=== PATIENT | female | born 1990 | race Caucasian/White ===

== ENCOUNTER 2017-12-21 15:33 | Emergency (ER) | payer BC, OTHER ==
[~2017-12-21 15:33] MED LIST: DEPO400I IM; PROM25SU8 PO
--- NOTE | 2017-12-21 16:59 | PD ---
HPI Chief Complaint increased bp Date Seen: Dec 21, 2017 Time Seen: 16:50 Travel History International Travel<30 Days: No Contact w/Intl Traveler<30Days: No Known Affected Area: No History of Present Illness HPI pt. is a at 40 weeks gestation present from dr. rat[place] office 2/2 increased bp. pt. states bp been running 110's systolic whole preg and today bp 130's over 80's. pt. denies cp/sob, n/v, lopez/visual disturbances. +FM, no lof/vb. Weeks Gestation: 40 Para: 0 : 1 History Past Medical History Medical History: Denies Significant Hx Obstetric History Obstetric History Past Surgical History Surgical History: No Previous Surgery Family History Family History: Negative Social History Alcohol Use: No Tobacco Use: No Substance Abuse: No Allergies-Medications (Allergen,Severity, Reaction): Coded Allergies: No Known Allergies (Unverified , 01/15/12) Home Meds Active Scripts Promethazine Hcl (Promethazine Hcl) 25 Mg Tab, 25 MG PO Q6HPRN, #30 FOR NAUSEA/VOMITING Prov:Edison Jimenez MD 01/15/12 Reported Medications Medroxyprogesterone Acetate (Depo-Provera) 400 Mg/Ml Inj, 400 MG IM every 3 months 01/15/12 Review of Systems Except as stated in HPI: all other systems reviewed are Neg Physical Exam Narrative GENERAL: Well-nourished, well-developed patient. SKIN: Warm and dry. HEAD: Normocephalic and atraumatic. EYES: No scleral icterus. No injection or drainage. ENT: No nasal drainage noted. Mucous membranes pink. Airway patent. NECK: Supple, trachea midline. No JVD. CARDIOVASCULAR: Regular rate and rhythm without murmurs, gallops, or rubs. RESPIRATORY: Breath sounds equal bilaterally. No accessory muscle use. BREASTS: Bilateral exam showed no masses , no retractions, no nipple discharge. ABDOMEN/GI: Abdomen soft, non-tender, bowel sounds present, no rebound, no guarding Gravid FHT's: Category: 1 Baseline: 120's Reactive: + Variability: mod Decels: none EXTREMITIES: No cyanosis or edema. BACK: Nontender without obvious deformity. No CVA tenderness. NEUROLOGICAL: Awake and alert. Motor and sensory grossly within normal limits. Five out of 5 muscle strength in all muscle groups. Normal speech. Data Data Vital Signs Reviewed: Yes [facility] Medical Record Reviewed: Yes Plan at 40 weeks w/o htn. htn d/w pt. precautions for return given to pt. all ? answered. f/u as sched. Disposition: 01 DISCHARGE HOME Condition: Stable Patient Instructions: General Instructions, at 39 to 40 Weeks (ED) Additional Instructions: Make appointment with your doctor for tuesday for a blood pressure check. drink 8 -10 glasses of water a day. Departure Forms: Tests/Procedures Jason An Jr., MD Dec 21, 2017 16:59
--- NOTE | 2017-12-21 17:26 | PD ---
HPI Travel History International Travel<30 Days: No Contact w/Intl Traveler<30Days: No Known Affected Area: No History of Present Illness HPI pt. is a at 40 weeks gestation present from dr. [place] office 2/2 increased bp. pt. states bp been running 110's systolic whole preg and today bp 130's over 80's. pt. denies cp/sob, n/v, lopez/visual disturbances. +FM, no lof/vb. Allergies-Medications (Allergen,Severity, Reaction): Coded Allergies: No Known Allergies (Unverified , 01/15/12) Home Meds Active Scripts Promethazine Hcl (Promethazine Hcl) 25 Mg Tab, 25 MG PO Q6HPRN, #30 FOR NAUSEA/VOMITING Prov:Edison Jimenez MD 01/15/12 Reported Medications Medroxyprogesterone Acetate (Depo-Provera) 400 Mg/Ml Inj, 400 MG IM every 3 months 01/15/12 Physical Exam Narrative GENERAL: Well-nourished, well-developed patient. SKIN: Warm and dry. HEAD: Normocephalic and atraumatic. EYES: No scleral icterus. No injection or drainage. ENT: No nasal drainage noted. Mucous membranes pink. Airway patent. NECK: Supple, trachea midline. No JVD. CARDIOVASCULAR: Regular rate and rhythm without murmurs, gallops, or rubs. RESPIRATORY: Breath sounds equal bilaterally. No accessory muscle use. BREASTS: Bilateral exam showed no masses , no retractions, no nipple discharge. ABDOMEN/GI: Abdomen soft, non-tender, bowel sounds present, no rebound, no guarding Gravid to [-] weeks size Fundal Height: [-] GENITOURINARY: External Genitalia: intact and normal in appearance BUS glands: [-] Cervix: [-] Dilatation: [-] Effacement: [-] Station: [-] Presentation: [-] Membranes: [intact or ruptured] Uterine Contractions: [-] FHT's: Category: [-] Baseline: [-] Reactive: [-] Variability: [-] Decels: [-] EXTREMITIES: No cyanosis or edema. BACK: Nontender without obvious deformity. No CVA tenderness. NEUROLOGICAL: Awake and alert. Motor and sensory grossly within normal limits. Five out of 5 muscle strength in all muscle groups. Normal speech. MDM Diagnosis Diagnosis: Primary Impression: Blood pressure elevated without history of HTN Additional Impression: 40 weeks gestation of Disposition: 01 DISCHARGE HOME Condition: Stable Patient Instructions: General Instructions, at 39 to 40 Weeks (ED) Additional Instructions: Make appointment with your doctor for tuesday for a blood pressure check. drink 8 -10 glasses of water a day. Departure Forms: Tests/Procedures Jason An Jr., MD Dec 21, 2017 17:26
== END 2017-12-21 16:54 | disposition home or self-care (01) ==
LOC: HOBED 15:33
DX: O26.893 Other specified pregnancy related conditions, third trimester (principal); R03.0 Elevated blood-pressure reading, without diagnosis of hypertension; Z3A.40 40 weeks gestation of pregnancy
CPT/HCPCS: 99283

== ENCOUNTER 2017-12-27 17:47 | Inpatient (IN) | payer BC ==
[~2017-12-27] VITALS: Ht 162.6 cm; Wt 89.0 kg
[2017-12-27 19:43] LABS: BACTERIA, URINE OCC /hpf; BILIRUBIN, URINE NEG (NEG); BLOOD, URINE NEG (NEG); GLUCOSE,URINE NEG (NEG); KETONE, URINE NEG (NEG); MUCUS URINE FEW /lpf (OCC); NITRITE,URINE NEG (NEG); PH, URINE 6.5 (5.0-8.5); SQUAMOUS EPITHELIAL CELL URINE 5 /hpf (0-5); URINE COLOR YELLOW (YELLW/STRAW); URINE LEUKOCYTE ESTERASE NEG (NEG)
[2017-12-27 19:53] LABS: AUTOMATED NEUTROPHIL # 7.7 TH/MM3 (1.8-7.7); BASOPHIL % 0.2 % (0.0-2.0); EOSINOPHIL # 0.1 TH/MM3 (0-0.4); EOSINOPHIL % 1.2 % (0.0-4.0); HEMATOCRIT 35.2 % (35.0-46.0); HEMOGLOBIN 11.9 GM/DL (11.6-15.3); LYMPH % 23.7 % (9.0-44.0); LYMPHOCYTE # 2.7 TH/MM3 (1.0-4.8); MEAN CELL VOLUME 89.3 FL (80.0-100.0); MEAN CORPUSCULAR HEMOGLOBIN 30.2 PG (27.0-34.0); MEAN CORPUSCULAR HGB CONC 33.8 % (32.0-36.0); MEAN PLATELET VOLUME 8.3 FL (7.0-11.0); MONO % 7.5 % (0.0-8.0); MONOCYTE # 0.9 TH/MM3 (0-0.9); NEUT % 67.4 % (16.0-70.0); PLATELET COUNT 236 TH/MM3 (150-450); RED BLOOD COUNT 3.94 MIL/MM3 (4.00-5.30); RED CELL DISTRIBUTION WIDTH 12.7 % (11.6-17.2); WHITE BLOOD COUNT 11.4 TH/MM3 (4.0-11.0)
[2017-12-27] MEDS ORDERED: OXYTOCIN 30 UNITS 500ML PREMIX IV ONE (20:15)
[2017-12-27] MEDS ORDERED: CITRIC ACID-SODIUM CITRATE LIQ 30 ML UDC PO SCH (20:15)
[2017-12-27] MEDS ORDERED: LIDOCAINE HCL 1% 50 ML VIAL INFIL PRN (20:15)
[2017-12-27] MEDS ORDERED: SODIUM CHLORIDE 0.9% FLUSH 10 ML FLUSH IV FLUSH SCH (20:15)
[2017-12-27] MEDS ORDERED: ZOLPIDEM TARTRATE 5 MG TAB PO PRN (20:15)
[2017-12-27] MEDS ORDERED: MINERAL OIL 10 ML VIAL TOPICAL PRN (20:15)
[2017-12-27] MEDS ORDERED: ONDANSETRON HCL 4 MG/2 ML VIAL IV PUSH PRN (20:15)
[2017-12-27] MEDS ORDERED: NS 1000 ML IV PRN (20:15)
[2017-12-27] MEDS ORDERED: SODIUM CHLORIDE 0.9% FLUSH 10 ML FLUSH IV FLUSH PRN (20:15)
[2017-12-27] MEDS ORDERED: LIDOCAINE HCL 1% 50 ML VIAL I-DERMAL PRN (20:15)
[2017-12-27] MEDS ORDERED: NS 500 ML BOLUS IV PRN (20:15)
[2017-12-27] MEDS ORDERED: LACTATED RINGER'S 1000 ML BOLUS IV PRN (20:15)
[2017-12-27] MEDS ORDERED: MISOPROSTOL 100 MCG TAB - VAGINALLY VAGINAL ONE (20:30)
[2017-12-27] MEDS ORDERED: MISOPROSTOL 25 MCG TAB VAGINAL ONE (20:30)
[2017-12-27 20:43] VITALS: BP 131/80; PULSE 87
[2017-12-27] MEDS: SODIUM CHLORIDE 0.9% FLUSH 10 ML FLUSH IV FLUSH SCH (21:00)
[2017-12-28] VITALS (18 sets, daily range): BP systolic 111–141; BP diastolic 61–91; PULSE 73–92; RESP 15–18; TEMP 97.5–98.3
[2017-12-28] MEDS: MISOPROSTOL 100 MCG TAB VAGINAL SCH ×2 (04:00)
[2017-12-28] MEDS ORDERED: ACETAMINOPHEN 325 MG TAB PO ONE (06:45)
--- NOTE | 2017-12-28 08:28 | MH ---
cc: Angel Haynes MD DATE OF ADMISSION: 12/27/2017 REASON FOR ADMISSION: Intrauterine at 41 weeks. Ms. Serna is a 27-year-old white female, para 0-0-0-0, whose last menstrual period and ultrasound put her at 41 weeks on the date of this dictation. She was put in the hospital last night and given some Cytotec because her cervix was long, thick, very high. We gave her 3 doses of Cytotec, and she is being evaluated for Pitocin. The baby is somewhat large, and I will go ahead an get an ultrasound this morning to confirm that the baby is not over 4500 g. Her RGS was abnormal at 175, and she never had time to get her 3-hour test because of work. PAST OBSTETRIC HISTORY: Para 0-0-0-0. PAST GYNECOLOGIC HISTORY: Her Pap smear is negative. CT, GC and tric are all negative at the beginning of the . PAST SURGICAL HISTORY: She had a laparoscopic surgery for endometriosis in 2014. 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 Her partner could not get tested due to financial reasons. Anemia. Abnormal glucose tolerance test. Heartburn in . SOCIAL HISTORY: She is single. She does not smoke. She quit in 03/2017. She is a nondrinker. She works at [employer]. FAMILY HISTORY: Remarkable for high blood pressure. ALLERGIES: NO KNOWN DRUG ALLERGIES. CURRENT MEDICATIONS: Iron 1 p.o. daily, vitamins 1 p.o. daily. REVIEW OF SYSTEMS: No headaches. No scotoma. No shortness of breath. No chest pain or pressure. Normal bowel function. The baby is moving well. She denies rupture of membranes, bleeding or regular uterine contractions. PHYSICAL EXAMINATION: Well-developed, well-nourished female in no acute distress. HEENT: Normocephalic, atraumatic. NECK: Supple. Trachea is in the midline. No thyromegaly, adenopathy. CHEST: Clear to auscultation. HEART: Regular rate and rhythm. ABDOMEN: . Fundal height is 39 cm. PELVIC: The external genitalia is normal. Vagina is clean. The cervix is closed, long, very posterior. The baby is very high. ASSESSMENT: 1. Intrauterine at 41 weeks, for induction with Cytotec if the baby is not over 4000 g. I would treat her like a diabetic since she could never get her 3-hour glucose tolerance test. If the baby is over 4000 g, I will strongly recommend a section. 2. Cystic fibrosis carrier. Will notify pediatrics. Partner could not get tested. 3. Group B streptococcus positive. Will go ahead and start her on penicillin when she gets into labor or if we do a section, we will premedicate her with cephalosporin. 4. Anemia. I will check her blood count when she gets admitted. 5. She declined an influenza vaccine on multiple occasions. R. Brandon Haynes MD RJV/LK , 08:02 AM , 08:26 AM
--- NOTE | 2017-12-28 09:33 | HHI.PR ---
Objective Vital Signs Date Time Temp Pulse Resp B/P (MAP) Pulse Ox O2 Delivery O2 Flow Rate FiO2 12/28/17 07:29 83 131/70 (90) 12/28/17 07:27 97.7 12/28/17 04:17 77 130/79 (96) 12/28/17 00:15 18 12/28/17 00:15 97.7 12/27/17 20:43 87 131/80 (97) Result Diagram: 12/27/17 1815 Assessment and Plan Assessment and Plan Long discussion this morning with the patient and her family regarding the weight of this baby. The ultrasound reveals a baby 3700+ g and I am concerned that this baby looks a little large I did offer her but she rather wait she is 5 feet 3 inches and has adequate pelvis. We discussed shoulder dystocia and the risks and benefits and alternatives of a section in some detail. We will give her some Pitocin this morning and if there is any problems with arrest of labor or arrested descent will go to section with a very low threshold for problems. She seems to understand and we will proceed with this plan. Angel Haynes MD Dec 28, 2017 09:33
[2017-12-28] MEDS: OXYTOCIN 30 UNITS-500ML PREMIX 500 ML IV PRN (10:06)
[2017-12-28] MEDS: LACTATED RINGER'S 1000 ML IV SCH ×2 (10:07→12:00)
[2017-12-28] MEDS: SODIUM CHLORIDE 0.9% FLUSH 10 ML FLUSH IV FLUSH SCH ×2 (10:08→21:00)
[2017-12-28 16:14] LABS: HEMOGLOBIN A1C 5.7 % (4.3-6.0)
[2017-12-28] MEDS ORDERED: [UNRECOGNIZED DRUG - OTHER] VAGINAL ONE ×2 (17:00→19:00)
[2017-12-29] VITALS (32 sets, daily range): BP systolic 121–139; BP diastolic 52–90; PULSE 76–102; RESP 17–18; TEMP 97.2–97.9; O2SAT 97–100
[2017-12-29] MEDS: OXYTOCIN 30 UNITS-500ML PREMIX 500 ML IV PRN (05:40)
[2017-12-29] MEDS ORDERED: ceFAZolin 2 GM PREMIX 50 ML IV SCH (10:45)
[2017-12-29] MEDS ORDERED: LACTATED RINGER'S 1000 ML IV SCH (10:45)
[2017-12-29] MEDS ORDERED: CITRIC ACID-SODIUM CITRATE LIQ 30 ML UDC PO SCH (10:45)
[2017-12-29] MEDS ORDERED: LACTATED RINGER'S 1000 ML IV ONE (10:45)
[2017-12-29] MEDS ORDERED: ONDANSETRON HCL 4 MG/2 ML VIAL IV ONE (12:00)
[2017-12-29] MEDS ORDERED: ePHEDrine/NS 25 MG/5 ML SYRINGE IV ONE (12:00)
[2017-12-29] MEDS ORDERED: OXYTOCIN 10 UNIT/ML AMP IV ONE (12:00)
[2017-12-29] MEDS ORDERED: LACTATED RINGER'S 1000 ML INJ 2,000 ML IV ONE (12:00)
[2017-12-29] MEDS ORDERED: DEXAMETHASONE SOD PHOS 4 MG/ML VIAL IV ONE (12:00)
[2017-12-29] MEDS ORDERED: MORPHINE SULFATE PF 5 MG/10 ML VIAL ONE (12:05)
[2017-12-29] MEDS ORDERED: ACETAMINOPHEN 1000 MG/100 ML 100 ML IV ONE ×2 (12:06→13:15)
[2017-12-29] MEDS ORDERED: SODIUM CHLORIDE 0.9% FLUSH 10 ML FLUSH IV FLUSH PRN (13:15)
[2017-12-29] MEDS ORDERED: ZOLPIDEM TARTRATE 5 MG TAB PO PRN (13:15)
[2017-12-29] MEDS ORDERED: ONDANSETRON HCL 4 MG/2 ML VIAL IV PUSH PRN (13:15)
[2017-12-29] MEDS ORDERED: OXYTOCIN 30 UNITS-500ML PREMIX 500 ML IV ONE ×2 (13:15)
[2017-12-29] MEDS ORDERED: oxyCODONE/ACETAMINOPHEN 5 MG/325 MG TAB PO PRN (13:15)
[2017-12-29] MEDS ORDERED: fentaNYL CITRATE 250 MCG/5 ML AMP ONE (13:20)
--- NOTE | 2017-12-29 13:26 | MP ---
cc: Angel Haynes MD DATE OF OPERATION: 12/29/2017 PREOPERATIVE DIAGNOSES: 1. Intrauterine at 41+ weeks. 2. Failed induction. 3. Possible macrosomia. POSTOPERATIVE DIAGNOSES: 1. Intrauterine at 41+ weeks. 2. Failed induction. 3. No macrosomia. PROCEDURE: Primary low transverse section. ANESTHESIA: Spinal. SURGEON: Angel Haynes MD RECTIFYING OPERATOR: Ioana Grijalva MD FINDINGS: Normal uterus, normal fallopian tubes, normal ovaries. Apgars 8 and 9. Weight 7 pounds 2 ounces. COMPLICATIONS: None. COUNTS: Correct. ESTIMATED BLOOD LOSS: 500 mL. FLUIDS: Crystalloids. Patient tolerated the procedure well, went to the recovery room in good condition. INDICATION FOR PROCEDURE: This is a lady who came in for induction of labor at 41 weeks. Her cervix was not inducible and I offered her a at that time. Because she had an abnormal RGS and no 3-hour GTT, I got an ultrasound to ensure that this baby was not very large. The baby was between 3700 and 3800 gm on ultrasound. I felt this baby was around 9 pounds. After 2 days of induction, her cervix really was not changing, she did not want to go through the Pitocin any more and we elected to proceed with the section. PROCEDURE: Under an adequate level of anesthesia, she was prepped and draped for abdominal surgery. A Pfannenstiel incision was made and carried down to the fascia. The fascia was taken off the rectus muscle by blunt and sharp dissection. The rectus muscles were spread bluntly and the peritoneum was entered under direct vision without difficulty. The incision was extended with care to avoid the urinary bladder. A bladder blade was placed and a bladder flap created in the usual fashion. The uterine incision was made in a transverse manner along the lower uterine segment which was not well-developed. It was taken down in the midline until the intrauterine cavity was entered. A large amount of clear fluid was noted. The vertex was grasped with a suction cup and delivered. The hypopharynx and nasopharynx were suctioned and the remainder of the infant delivered without difficulty. The cord was doubly clamped and cut and the infant handed to the resuscitation team present. The placenta was then delivered manually. The uterus was curettaged twice with a wet lap and irrigated with a large amount of fluid. The uterine incision was then repaired with 2-0 Vicryl in a running locking fashion, with the second layer imbricating the first. Hemostasis was excellent. The cul-de-sac and gutters were cleaned of blood and debris. The uterus was delivered back into the abdomen. The rectus muscles were reapproximated with 0 Vicryl in interrupted fashion. The fascia was repaired from lateral to midline with 0 Vicryl and the subcu was repaired with 3-0 Vicryl. The skin was repaired with a 4-0 Vicryl in a subcuticular manner. The wound was sterilely dressed. She tolerated the procedure well and went to the recovery room in satisfactory condition. R. Brandon Haynes MD RJV/TI , 01:10 PM , 01:25 PM
[2017-12-29] MEDS ORDERED: EPIDURAL-DO NOT ADMINISTER ANTICOAGULANTS PRN (15:15)
[2017-12-29] MEDS ORDERED: EPIDURAL-DIPHENHYDRAMINE HCL 50 MG/ML VIAL IV PUSH PRN (15:15)
[2017-12-29] MEDS ORDERED: EPIDURAL-NALOXONE HCL 0.4 MG/ML AMP IV PUSH PRN (15:15)
[2017-12-29] MEDS ORDERED: EPIDURAL-NO SYSTEMIC NARCOTICS PRN (15:15)
[2017-12-29] MEDS ORDERED: EPIDURAL-DIPHENHYDRAMINE HCL 50 MG CAP PO PRN (15:15)
[2017-12-29] MEDS: LACTATED RINGER'S 1000 ML INJ 1,000 ML IV SCH (20:25)
[2017-12-29] MEDS: SODIUM CHLORIDE 0.9% FLUSH 10 ML FLUSH IV FLUSH SCH (20:25)
[2017-12-29] MEDS ORDERED: OXYTOCIN 30 UNITS-500ML PREMIX 500 ML IV PRN (23:15)
[2017-12-29] MEDS: DOCUSATE SODIUM 50 MG/SENNA 8.6 MG TAB PO PRN (23:27)
[2017-12-29] MEDS: IBUPROFEN 600 MG TAB PO PRN (23:28)
[2017-12-29] MEDS: oxyCODONE/ACETAMINOPHEN 5 MG/325 MG TAB PO PRN (23:28)
[2017-12-30] MEDS: LACTATED RINGER'S 1000 ML INJ 1,000 ML IV SCH (04:05)
[2017-12-30] MEDS: IBUPROFEN 600 MG TAB PO PRN ×3 (06:06→20:04)
[2017-12-30 06:18] LABS: AUTOMATED NEUTROPHIL # 10.7 TH/MM3 (1.8-7.7); BASOPHIL % 0.1 % (0.0-2.0); EOSINOPHIL # 0.1 TH/MM3 (0-0.4); EOSINOPHIL % 0.5 % (0.0-4.0); HEMATOCRIT 31.7 % (35.0-46.0); HEMOGLOBIN 10.9 GM/DL (11.6-15.3); LYMPH % 14.3 % (9.0-44.0); MEAN CELL VOLUME 89.4 FL (80.0-100.0); MEAN CORPUSCULAR HEMOGLOBIN 30.7 PG (27.0-34.0); MEAN CORPUSCULAR HGB CONC 34.4 % (32.0-36.0); MEAN PLATELET VOLUME 8.2 FL (7.0-11.0); MONO % 9.3 % (0.0-8.0); MONOCYTE # 1.3 TH/MM3 (0-0.9); NEUT % 75.8 % (16.0-70.0); PLATELET COUNT 198 TH/MM3 (150-450); RED BLOOD COUNT 3.54 MIL/MM3 (4.00-5.30); WHITE BLOOD COUNT 14.2 TH/MM3 (4.0-11.0)
[2017-12-30 08:00] VITALS: BP 116/74; PULSE 70; RESP 16; TEMP 97.5
[2017-12-30] MEDS: SODIUM CHLORIDE 0.9% FLUSH 10 ML FLUSH IV FLUSH SCH ×2 (09:40→20:49)
[2017-12-30] MEDS: SIMETHICONE 80 MG CHEWABLE TAB PO PRN (11:41)
[2017-12-30 12:00] VITALS: BP 123/82; PULSE 85; RESP 18
[2017-12-30] MEDS: oxyCODONE/ACETAMINOPHEN 5 MG/325 MG TAB PO PRN ×2 (12:56→20:05)
[2017-12-30] MEDS: DOCUSATE SODIUM 50 MG/SENNA 8.6 MG TAB PO PRN (12:56)
--- NOTE | 2017-12-30 14:42 | HHI.OB ---
Subjective Post Operative Day: 1 Remarks Doing well, Pain is well controlled Baby is doing well Having flatus and good diet. Objective Vitals/I&O Vital Signs Date Time Temp Pulse Resp B/P (MAP) Pulse Ox O2 Delivery O2 Flow Rate FiO2 12/30/17 12:00 123/82 (96) 12/30/17 12:00 85 18 12/30/17 08:00 97.5 70 16 116/74 (88) 12/29/17 15:14 97.7 85 18 138/82 (100) 12/29/17 14:45 130/78 (95) 12/29/17 14:44 97.8 12/29/17 14:43 79 98 12/29/17 14:42 18 Result Diagram: 12/30/17 0453 Objective Remarks GENERAL: Well-nourished, well-developed patient. CARDIOVASCULAR: Regular rate and rhythm without murmurs, gallops, or rubs. RESPIRATORY: Breath sounds equal bilaterally. No accessory muscle use. ABDOMEN/GI: Abdomen soft, non-tender, bowel sounds present. Incision: Clean, dry and intact. Fundus: Firm, non-tender at umbilicus. GENITOURINARY: Light to moderate bleeding. EXTREMITIES: No cyanosis or edema, non-tender, without signs of DVT. Medications and IVs Current Medications Medications (Trade) Dose Ordered Sig/Elisabeth Route Start Time Stop Time Status Last Admin Oxytocin 500 ml @ 100 mls/hr UNSCH X1 PRN IV 12/29/17 23:15 12/30/17 23:14 (NS Flush) 2 ml BID IV FLUSH 12/29/17 21:00 (NS Flush) 2 ml UNSCH PRN IV FLUSH 12/29/17 13:15 12/30/17 04:01 (Mylicon Chew) 80 mg QID PRN PO 12/29/17 13:15 12/30/17 11:41 (Motrin) 600 mg Q6H PRN PO 12/29/17 13:15 12/30/17 12:56 (Percocet 5-325 Mg) 1 tab Q4H PRN PO 12/29/17 13:15 12/30/17 12:56 (Percocet 5-325 Mg) 2 tab Q4H PRN PO 12/29/17 13:15 (Micki-Colace) 2 tab Q12H PRN PO 12/29/17 13:15 12/30/17 12:56 (Ambien) 5 mg HS PRN PO 12/29/17 13:15 (M-M-R Ii Inj) 0.5 ml ONCE ONCE SQ 12/30/17 16:00 12/30/17 16:01 (Boostrix Inj) 0.5 ml ONCE ONCE IM 12/30/17 16:00 12/30/17 16:01 (Zofran Inj) 4 mg Q6H PRN IV PUSH 12/29/17 13:15 Miscellaneous Information NO SYSTEMIC NARCOTICS TO BE GIVEN FO... UNSCH PRN .XX 12/29/17 15:15 12/30/17 15:14 (Narcan Inj) 0.4 mg UNSCH PRN IV PUSH 12/29/17 15:15 12/30/17 15:14 (Benadryl Inj) 25 mg Q6H PRN IV PUSH 12/29/17 15:15 12/30/17 15:14 (Benadryl) 50 mg Q6H PRN PO 12/29/17 15:15 12/30/17 15:14 Miscellaneous Information ALL NURSING DEPARTMENTS UNSCH PRN .XX 12/29/17 15:15 12/30/17 15:14 Assessment/Plan Assessment and Plan POD #1 Anemia and will start .fe after she is off the percocet Doing well Will consider d/c home tomorrow Angel Haynes MD Dec 30, 2017 14:42
[2017-12-30] MEDS ORDERED: IBUP-232 PO (14:46)
[2017-12-30] MEDS ORDERED: OXYC1TAB63 PO (14:46)
--- NOTE | 2017-12-30 14:47 | HHI.DCPOC ---
Discharge Care Plan Diagnosis: (1) Failed induction of labor (2) delivery delivered Report Symptoms to Your Doctor -Temperature above 100.5 degrees -Redness, of incision or excessive or foul smelling drainage -Unusual pain or calf pain -Increased vaginal bleeding -Painful or difficulty urinating -Feelings of extreme sadness or anxiety after 2 weeks Goals to Promote Your Health * To prevent worsening of your condition and complications * To maintain your health at the optimal level Directions to Meet Your Goals Take your medications as prescribed Follow your dietary instruction Follow activity as directed Ensure plenty of rest for recovery Drink fluids for hydration Keep your appointments as scheduled Take your immunizations and boosters as scheduled If your symptoms worsen call your PCP, if no PCP go to Urgent Care Center or Emergency Room Smoking is Dangerous to Your Health. Avoid second hand smoke Call the 24-hour crisis hotline for domestic abuse at Angel Haynes MD Dec 30, 2017 14:46
[2017-12-30] MEDS ORDERED: MEASLES, MUMPS, RUBELLA VACCINE 0.5 ML VIAL SQ ONE (16:00)
[2017-12-30] MEDS ORDERED: DIPHTH/TETANUS/ACEL PERTUSSIS (BOOSTER) 0.5 ML VIAL/PFS IM ONE (16:00)
[2017-12-31] MEDS: SIMETHICONE 80 MG CHEWABLE TAB PO PRN (04:19)
[2017-12-31] MEDS: oxyCODONE/ACETAMINOPHEN 5 MG/325 MG TAB PO PRN ×2 (04:19→10:31)
[2017-12-31] MEDS: IBUPROFEN 600 MG TAB PO PRN ×2 (04:19→10:31)
--- NOTE | 2017-12-31 10:15 | HHI.OB ---
Subjective Post Operative Day: 2 Remarks doing well, +BM, desires discharge home today Objective Vitals/I&O Vital Signs Date Time Temp Pulse Resp B/P (MAP) Pulse Ox O2 Delivery O2 Flow Rate FiO2 12/30/17 12:00 123/82 (96) 12/30/17 12:00 85 18 Result Diagram: 12/30/17 0453 Objective Remarks GENERAL: Well-nourished, well-developed patient. CARDIOVASCULAR: Regular rate and rhythm without murmurs, gallops, or rubs. RESPIRATORY: Breath sounds equal bilaterally. No accessory muscle use. ABDOMEN/GI: Abdomen soft, non-tender, bowel sounds present. Incision: Clean, dry and intact. Fundus: Firm, non-tender at umbilicus. GENITOURINARY: Light to moderate bleeding. EXTREMITIES: No cyanosis or edema, non-tender, without signs of DVT. Medications and IVs Current Medications Medications (Trade) Dose Ordered Sig/Elisabeth Route Start Time Stop Time Status Last Admin (NS Flush) 2 ml BID IV FLUSH 12/29/17 21:00 (NS Flush) 2 ml UNSCH PRN IV FLUSH 12/29/17 13:15 12/30/17 04:01 (Mylicon Chew) 80 mg QID PRN PO 12/29/17 13:15 12/31/17 04:19 (Motrin) 600 mg Q6H PRN PO 12/29/17 13:15 12/31/17 04:19 (Percocet 5-325 Mg) 1 tab Q4H PRN PO 12/29/17 13:15 12/31/17 04:19 (Percocet 5-325 Mg) 2 tab Q4H PRN PO 12/29/17 13:15 (Micki-Colace) 2 tab Q12H PRN PO 12/29/17 13:15 12/30/17 12:56 (Ambien) 5 mg HS PRN PO 12/29/17 13:15 (Zofran Inj) 4 mg Q6H PRN IV PUSH 12/29/17 13:15 Assessment/Plan Assessment and Plan POD #2 Anemia , asymptomatic Doing well, d/c home today Discharge Planning routine Attending Attestation seen by Hoda Rascon MD Dec 31, 2017 10:15
== END 2017-12-31 14:18 | disposition home or self-care (01) | DRG 766 ==
LOC: H2EB 17:47 → H1EA 12-29 15:02
PROVIDERS: ADMIT Obstetrics & Gynecology; ATTEND Obstetrics & Gynecology
PROC: 3E0P7VZ Introduction of Hormone into Female Reproductive, Via Natural or Artificial Opening (ICD-10-PCS; 2017-12-27)
PROC: 3E033VJ Introduction of Other Hormone into Peripheral Vein, Percutaneous Approach (ICD-10-PCS; 2017-12-27)
PROC: 10D00Z1 Extraction of Products of Conception, Low, Open Approach (ICD-10-PCS; principal; 2017-12-29)
DX: O99.02 Anemia complicating childbirth (principal); D64.9 Anemia, unspecified; Z37.0 Single live birth; O99.824 Streptococcus B carrier state complicating childbirth; Z14.1 Cystic fibrosis carrier; Z3A.41 41 weeks gestation of pregnancy; O61.0 Failed medical induction of labor
CPT/HCPCS: 59025; 76816; 76937; 80307; 81001; 83036; 85025; 86900; 86901; G0481; J0131; J0690; J1100; J2274; J2405; J2590; J3010; J7120